=== PATIENT | male | born 1950 | race Caucasian/White ===

== ENCOUNTER 2016-11-11 08:00 | Outpatient (CLI) | payer MEDICARE, BC | END 2016-11-11 08:01 | disposition home or self-care (01) | DX: E11.9 Type 2 diabetes mellitus without complications (principal) ==

== ENCOUNTER 2017-08-21 13:07 | Emergency (ER) | payer MEDICARE, BC ==
[2017-08-21 14:30] LABS: BASOPHILS % (AUTO) 0.4 %; EOSINOPHILS % (AUTO) 0.3 %; HGB - HEMOGLOBIN 15.3 g/dL (14.0-18.0); LYMPHOCYTES # (AUTO) 2.3 10^3/uL (1.5-3.5); LYMPHOCYTES % (AUTO) 26.8 %; MEAN CORPUSCULAR VOLUME 87.7 fL (80.0-94.0); MEAN PLATELET VOLUME 11.3 fL (7.4-11.4); MONOCYTES # (AUTO) 0.8 10^3/uL (0.0-1.0); MONOCYTES % (AUTO) 8.9 %; NEUTROPHILS # (AUTO) 5.6 10^3/uL (1.5-6.6); NEUTROPHILS % (AUTO) 63.6 %; PLT - PLATELET COUNT 130 10^3/uL (130-450); RED BLOOD COUNT 5.28 10^6/uL (4.70-6.10); RED CELL DISTRIBUTION WIDTH 14.2 % (12.0-15.0); WHITE BLOOD COUNT 8.7 x10^3/uL (4.8-10.8)
[2017-08-21 14:36] LABS: BUN - BLOOD UREA NITROGEN 19 mg/dL (6-20); CALCIUM 10.2 mg/dL (8.5-10.3); CARBON DIOXIDE - CO2 27 mmol/L (21-32); CHLORIDE 99 mmol/L (101-111); CREATININE 1.3 mg/dL (0.6-1.2); GFR - MDRD 55 (>89); GLUCOSE 221 mg/dL (70-100); SODIUM 138 mmol/L (135-145)
[2017-08-21 14:43] LABS: PLATELET MORPHOLOGY RARE GIANT PLATELETS (NORMAL); RBC MORPHOLOGY (MULTIPLE) 2+ ANISOCYTOSIS (NORMAL)
[2017-08-21 15:40] LABS: MUDS CUTOFF CONCENTRATIONS CUTOFF CONC BELOW:
[2017-08-21 15:44] LABS: BILIRUBIN,URINE NEGATIVE (NEGATIVE); GLUCOSE, URINE (UA) 100 mg/dL (NEGATIVE); KETONES,URINE (UA) NEGATIVE (NEGATIVE); LEUKOCYTE ESTERASE, URINE NEGATIVE (NEGATIVE); NITRITE,URINE NEGATIVE (NEGATIVE); OCCULT BLOOD,URINE NEGATIVE (NEGATIVE); PROTEIN,URINE NEGATIVE (NEGATIVE); UROBILINOGEN,URINE 0.2 (NORMAL) E.U./dL (NORMAL)
[2017-08-21 15:49] LABS: CLARITY,URINE CLEAR (CLEAR)
--- NOTE | 2017-08-21 15:58 | CT Report ---
EXAM: CT HEAD EXAM DATE: 08/21/2017 03:44 PM. CLINICAL HISTORY: Confusion COMPARISON: None. TECHNIQUE: Multiaxial CT images were obtained from the foramen magnum to the vertex. Reformats: Coron al. IV contrast: None. In accordance with CT protocol optimization, one or more of the following dose reduction techniques w ere utilized for this exam: automated exposure control, adjustment of mA and/or KV based on patient s ize, or use of iterative reconstructive technique. FINDINGS: Parenchyma: There is cortical and subcortical hypodensity within the high right frontal region. There is subcortical hypodensity within the right posterior parietal region. There is a small focus of whi te matter hypodensity within the left centrum semiovale. There is no evidence of hemorrhage. No mass effect. No evidence of mass lesion. There is some scattered Extraaxial Spaces: Normal for age. No subdural or epidural collections identified. Ventricles: There is mild ex vacuo dilatation of the right lateral ventricle. Sinuses and Orbits: Imaged paranasal sinuses, orbits, and mastoids show no significant abnormality. Bones: No evidence of fracture or calvarial defect. Other: None. IMPRESSION: 1. Encephalomalacia within the high right frontal region is likely secondary to prior right MCA distr ibution infarct. 2. There is no evidence of hemorrhage or mass effect. [facility] Referring Provider Line: [phone] SITE ID: [id number]
[2017-08-21 15:59] LABS: AMPHETAMINE SCREEN,URINE NEGATIVE (NEGATIVE); BENZODIAZEPINES SCREEN, URINE NEGATIVE (NEGATIVE); COCAINE SCREEN URINE NEGATIVE (NEGATIVE); METHADONE SCREEN, URINE NEGATIVE (NEGATIVE); METHAMPHETAMINES SCREEN, URINE NEGATIVE (NEGATIVE); OPIATE SCREEN, URINE NEGATIVE (NEGATIVE); OXYCODONE SCREEN, URINE NEGATIVE (NEGATIVE); PROPOXYPHENE SCREEN, URINE NEGATIVE (NEGATIVE); TRICYCLIC ANTIDEPRESSANT,URINE NEGATIVE (NEGATIVE)
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
--- NOTE | 2017-08-21 18:24 | Ultrasound Preliminary Report ---
Exam: US CAROTID DOPPLER COMPLETE IMPRESSION: 1. The right internal carotid artery demonstrates no evidence of hemodynamically significant stenosis . 2. The left internal carotid artery is occluded. 3. Bilateral vertebral artery flow is antegrade. Validated velocity measurements with angiographic measurements and velocity criteria are extrapolated from diameter data as defined by the Society of Radiologists in Ultrasound Consensus Conference Radi ology 2003; 229;340-346. [facility] SITE ID: [id number]
--- NOTE | 2017-08-21 18:39 | Ultrasound Report ---
EXAM: CAROTID DOPPLER ULTRASOUND EXAM DATE: 08/21/2017 06:17 PM. CLINICAL HISTORY: Memory loss. COMPARISON: 07/04/2011. TECHNIQUE: Real-time sonographic vascular imaging was performed by the writing tutor through the caroti d arterial system with a linear transducer utilizing color-flow, Doppler flow and spectral analysis. Multiple wire rope sales representative static images were saved for review. FINDINGS: Right: RCCA Prox: PSV 86 cm/sec. RCCA Dist: PSV 64 cm/sec, EDV 14 cm/sec. RECA: PSV 205 cm/sec. R Bulb: PSV 69 cm/sec, EDV 12 cm/sec, ICA/CCA ratio 1.07. TAMIKO Prox: PSV 61 cm/sec, EDV 23 cm/sec, ICA/CCA ratio 0.95. TAMIKO Mid: PSV 72 cm/sec, EDV 25 cm/sec, ICA/CCA ratio 1.12. TAMIKO Dist: PSV 60 cm/sec, EDV 21 cm/sec, ICA/CCA ratio 0.93. RVA: PSV 67 cm/sec. RVA flow direction: Antegrade. Left: LCCA Prox: PSV 67 cm/sec. LCCA Dist: PSV 60 cm/sec, EDV 11 cm/sec. LECA: PSV 165 cm/sec. L Bulb: PSV 55 cm/sec, EDV 10 cm/sec, ICA/CCA ratio 0.91. LICA Prox: Occluded. LICA Mid: Occluded. LICA Dist: Occluded. LVA: PSV 26 cm/sec. LVA flow direction: Antegrade. Other: None. IMPRESSION: 1. The right internal carotid artery demonstrates no evidence of hemodynamically significant stenosis . 2. The left internal carotid artery is occluded. 3. Bilateral vertebral artery flow is antegrade. Validated velocity measurements with angiographic measurements and velocity criteria are extrapolated from diameter data as defined by the Society of Radiologists in Ultrasound Consensus Conference Radi ology 2003; 229;340-346. [facility] Referring Provider Line: [phone] SITE ID: [id number]
[2017-08-21 19:09] VITALS: BP 171/83
== END 2017-08-21 19:25 | disposition home or self-care (01) ==
LOC: ED 13:07
DX: R41.3 Other amnesia (principal); Z86.73 Personal history of transient ischemic attack (TIA), and cerebral infarction without residual deficits; I10 Essential (primary) hypertension; I25.10 Atherosclerotic heart disease of native coronary artery without angina pectoris; E11.9 Type 2 diabetes mellitus without complications; E78.00 Pure hypercholesterolemia, unspecified; Z79.82 Long term (current) use of aspirin; Z79.899 Other long term (current) drug therapy; Z79.84 Long term (current) use of oral hypoglycemic drugs
CPT/HCPCS: 36415; 70450; 80048; 80306; 81003; 84443; 85025; 93880; 99283; 99284; G0480; 80320; 81001; 87086

== ENCOUNTER 2018-04-08 15:15 | Outpatient (CLI) | payer MEDICARE, BC ==
[2018-04-08 19:04] LABS: BASOPHILS % (AUTO) 0.5 %; EOSINOPHILS # (AUTO) 0.1 10^3/uL (0.0-0.7); HGB - HEMOGLOBIN 14.7 g/dL (14.0-18.0); LYMPHOCYTES # (AUTO) 2.4 10^3/uL (1.5-3.5); LYMPHOCYTES % (AUTO) 38.4 %; MEAN CORPUSCULAR HEMOGLOBIN 29.5 pg (27.0-31.0); MEAN CORPUSCULAR HGB CONC 32.9 g/dL (32.0-36.0); MEAN CORPUSCULAR VOLUME 89.7 fL (80.0-94.0); MEAN PLATELET VOLUME 11.5 fL (7.4-11.4); MONOCYTES # (AUTO) 0.6 10^3/uL (0.0-1.0); NEUTROPHILS # (AUTO) 3.2 10^3/uL (1.5-6.6); NEUTROPHILS % (AUTO) 51.1 %; PLT - PLATELET COUNT 128 10^3/uL (130-450); RED CELL DISTRIBUTION WIDTH 14.1 % (12.0-15.0); WHITE BLOOD COUNT 6.3 x10^3/uL (4.8-10.8)
[2018-04-08 19:12] LABS: HB2 TOTAL 15.7 g/dL; HEMOGLOBIN A1C 0.69 g/dL; HEMOGLOBIN A1C % 6.2 % (4.6-6.2)
[2018-04-08 19:19] LABS: ALBUMIN 4.5 g/dL (3.2-5.5); ALBUMIN/GLOBULIN RATIO 1.6 (1.0-2.2); ALKALINE PHOSPHATASE 21 IU/L (42-121); ALT ALANINE AMINOTRANSFERASE 23 IU/L (10-60); AST ASPARTATE AMINOTRANSFERASE 22 IU/L (10-42); BILIRUBIN,TOTAL 0.4 mg/dL (0.2-1.0); BUN - BLOOD UREA NITROGEN 16 mg/dL (6-20); CALCIUM 9.4 mg/dL (8.5-10.3); CARBON DIOXIDE - CO2 29 mmol/L (21-32); CHLORIDE 105 mmol/L (101-111); CHOL/HDL RATIO 3.4 (<5.0); CHOLESTEROL 104 mg/dL; CREATININE 1.2 mg/dL (0.6-1.2); GFR - MDRD 60 (>89); GLUCOSE 116 mg/dL (70-100); HDL CHOLESTEROL 31 mg/dL; LDL CHOLESTEROL,CALCULATED 32 mg/dL; SODIUM 138 mmol/L (135-145); TOTAL PROTEIN 7.3 g/dL (6.7-8.2); VLDL CHOLESTEROL 41 mg/dL
[2018-04-08 19:23] LABS: THYROID STIMULATING HORMONE 1.17 uIU/mL (0.34-5.60)
== END 2018-04-08 15:16 | disposition home or self-care (01) ==
LOC: LAB.WCP 15:15
PROVIDERS: ATTEND Family Medicine
DX: R41.0 Disorientation, unspecified (principal); E11.9 Type 2 diabetes mellitus without complications; G31.84 Mild cognitive impairment of uncertain or unknown etiology
CPT/HCPCS: 36415; 80053; 80061; 82607; 83036; 83721; 84443; 85025

== ENCOUNTER 2018-04-21 09:42 | Outpatient (CLI) | payer MEDICARE, BC ==
[2018-04-21] MEDS ORDERED: GADOBUTROL 10 MMOL/10 ML VIAL ONE (11:08)
[2018-04-21] MEDS ORDERED: GADOBUTROL 10 MMOL/10 ML VIAL IVP ONE (11:17)
--- NOTE | 2018-04-21 13:57 | MRI Report ---
Reason: CONFUSION, MILD COFNITIVE IMPAIRMENT Procedure Date: 04/21/2018 Accession Number: [id number] / [id number] Procedure: MRI - Brain W/O CPT Code: FULL RESULT: EXAM: MRI BRAIN WITH AND WITHOUT CONTRAST EXAM DATE: 04/21/2018 11:16 AM. CLINICAL HISTORY: Mild cognitive impairment. Confusion. COMPARISON: CT head 08/21/2017. MRA neck 07/07/2011. TECHNIQUE: Multiplanar, multisequence T1-weighted and fluid-sensitive MR sequences of the brain were performed prior to and following the administration of intravenous contrast. Sequences optimized for routine evaluation. Other: None. IV Contrast: 10 cc Gadavist. FINDINGS: No abnormal diffusion signal is identified in the brain parenchyma. Encephalomalacia and gliosis is seen in the right frontal lobe from a remote partial distribution right MCA infarct. There is encephalomalacia and gliosis in the superior parietal lobe bilaterally. There is a small area of encephalomalacia and gliosis in the inferior, posterior right parietal lobe extending into the superior occipital lobe. Areas of cystic encephalomalacia are seen in the left centrum semiovale ovale. Gyriform magnetic susceptibility is seen in the right frontal lobe in the area of encephalomalacia. This could reflect the sequelae of a petechial hemorrhage at the time of infarct or could be a manifestation of laminar necrosis. Punctate white matter FLAIR hyperintensities in the cerebral hemisphere white matter bilaterally are nonspecific. No abnormal T2 or FLAIR hyperintense signal is present in the infratentorial brain. There is loss of the normal flow-void in the distal cervical ICA on the left. On the comparison MRA, the left ICA appears to be occluded. At the level of the A1/A2 junction of the left TONYA, there is a 2 mm fullness of the flow-void projecting medial to the left TONYA. There is no correlate on the postcontrast axial images suggesting that this reflects vessel tortuosity. No enhancing mass is identified in the brain parenchyma. Expected enhancement is seen in the major dural venous sinuses. The cavernous sinuses enhance in symmetric fashion. No mass is present in either orbit. Pansinus mucosal thickening is present. IMPRESSION: 1.No acute CVA. 2. No enhancing mass is present in the brain parenchyma. 3. Areas of encephalomalacia are seen in each cerebral hemisphere consistent with prior remote ischemic events. This includes a prior partial distribution right MCA infarct. 4. Again seen is an occluded left cervical ICA. 5. Pansinus mucosal thickening. [facility]
== END 2018-04-21 09:43 | disposition home or self-care (01) ==
LOC: DI 09:42
PROVIDERS: ATTEND Family Medicine
DX: G93.89 Other specified disorders of brain (principal); I65.22 Occlusion and stenosis of left carotid artery; Z86.73 Personal history of transient ischemic attack (TIA), and cerebral infarction without residual deficits
CPT/HCPCS: 70551; 70553; A9585

== ENCOUNTER 2018-10-21 16:37 | Outpatient (CLI) | payer MEDICARE, BC ==
--- NOTE | 2018-10-22 09:16 | MRI Report ---
Reason: NEW ONSET SEIZURE Procedure Date: 10/21/2018 Accession Number: [id number] / [id number] Procedure: MRI - Brain W/O CPT Code: FULL RESULT: EXAM: MRI BRAIN WITHOUT CONTRAST EXAM DATE: 10/21/2018 06:19 PM. CLINICAL HISTORY: NEW ONSET SEIZURE. COMPARISON: Prior MRI brain 04/21/2018, CT head 08/21/2017. TECHNIQUE: Multiplanar, multisequence T1-weighted and fluid-sensitive MR sequences of the brain were performed. Sequences optimized for routine evaluation. Other: None. IV Contrast: None. Findings: Relevant images are indicated (image number, series number). There is no interval acute/subacute ischemic change in the brain. Again seen is old right parietal stroke, with petechial hemorrhage, seen previously. No interval hemorrhage, mass or midline shift. Basal cisterns, bilateral IACs, bilateral Meckel's caves are clear. Again seen absence of a flow void of the left internal carotid artery. Otherwise, normal appearance of the flow voids of the major arteries/major draining veins. Orbital contents negative. Paranasal sinuses, mastoid air cells negative. Again seen are multifocal old strokes including large area right MCA, smaller left MCA areas but unchanged from MRI 04/21/2018. Superimposed mild scattered white matter disease, mild generalized brain atrophy. Impressions: Compared with MRI brain 04/21/2018: 1. No acute interval change. 2. Multifocal old strokes as detailed, stable. 3. Again seen occluded left internal carotid artery. [facility]
== END 2018-10-21 16:38 | disposition home or self-care (01) ==
LOC: DI 16:37
PROVIDERS: ATTEND Psychiatry & Neurology Neurology
DX: I65.22 Occlusion and stenosis of left carotid artery (principal); Z86.73 Personal history of transient ischemic attack (TIA), and cerebral infarction without residual deficits
CPT/HCPCS: 70551

== ENCOUNTER 2018-10-23 16:06 | Emergency (ER) | payer MEDICARE, BC ==
--- NOTE | 2018-10-23 17:15 | ED Physician Documentation ---
PD HPI HEENT - Stated complaint Stated Complaint: EARS PLUGGED - Chief complaint Chief Complaint: Heent - History obtained from History obtained from: Patient - History of Present Illness Timing - onset: How many days ago (few days of less hearing and he presumed some ear wax, so trying to flush it out. he now can't hear at all on left side.) Timing - details: Gradual onset (with worse today and now can't hear from it at all.) Location: Left ear Associated symptoms: No: Fever, Congestion Similar symptoms before: Diagnosis (earwax impaction) Recently seen: Not recently seen Review of Systems Constitutional: denies: Fever, Chills Ears: reports: Loss of hearing. denies: Drainage/discharge, Tinnitus/ringing Nose: denies: Rhinorrhea / runny nose, Congestion Throat: denies: Sore throat Respiratory: denies: Cough PD PAST MEDICAL HISTORY - Past Medical History Cardiovascular: Hypertension, High cholesterol, Coronary artery disease, [place], Other Respiratory: Other Endocrine/Autoimmune: Type 2 diabetes GI: GERD : Benign prostate hypertrophy, Kidney stones HEENT: Other Musculoskeletal: Osteoarthritis Derm: None - Past Surgical History Past Surgical History: Yes General: Cholecystectomy, Colonoscopy Ortho: Knee replacement, Arthroscopic surgery Cardiovascular: Coronary stent - Present Medications Home Medications: Ambulatory Orders Medication Instructions Recorded Confirmed Aspirin 81 mg PO BID 04/28/14 08/21/17 Atenolol 25 mg PO DAILY 04/28/14 08/21/17 Atorvastatin [Lipitor] 20 mg PO DAILY 04/28/14 08/21/17 Citalopram [CeleXA] 20 mg PO DAILY 04/28/14 08/21/17 Fenofibrate [Tricor] 144 mg PO DAILY 04/28/14 08/21/17 Losartan [Cozaar] 25 mg PO DAILY 04/28/14 08/21/17 Metformin HCl 500 mg PO BID 04/28/14 08/21/17 [place]-3 Fatty Acids [Fish Oil] 1,200 mg PO DAILY 04/28/14 08/21/17 Omeprazole [PriLOSEC] 20 mg PO DAILY 04/28/14 08/21/17 amLODIPine [Norvasc] 10 mg PO DAILY 02/26/15 08/21/17 Tamsulosin HCl [Flomax] 0.4 mg PO DAILY 08/21/17 08/21/17 Neomycin/Polymyx/Hc Otic Drops 4 drops LEFTEAR TID #1 bottle 10/23/18 [Cortisporin Ear Susp] - Allergies Allergies/Adverse Reactions: Allergies Allergy/AdvReac Type Severity Reaction Status Date / Time lorazepam AdvReac Severe Unable to Verified 10/23/18 16:13 move leg tamsulosin HCl * AdvReac Unknown Verified 10/23/18 16:13 [From Flomax] - Social History Does the pt smoke?: No Smoking Status: Never smoker Does the pt drink ETOH?: No Does the pt have substance abuse?: Yes - Immunizations Immunizations are current?: Yes PD ED PE NORMAL - Vitals Vital signs reviewed: Yes - General General: Alert and oriented X 3, No acute distress, Well developed/nourished - HEENT HEENT: PERRL, EOMI, Pharynx benign. No: Ears normal (right with mild wax and normal TM/canal. Left with impacted cerumen, which is removed with ear currette. The TM is red as is the medial canal, once visible with was out of the way. ) - Neck Neck: Supple, no meningeal sign, No adenopathy - Derm Derm: Normal color, Warm and dry - Neuro Neuro: Alert and oriented X 3, No motor deficit, Normal speech Results - Vitals Vitals: Oxygen O2 Source Room air Departure - Departure Disposition: 01 Home, Self Care Clinical Impression: Impacted cerumen of left ear Otitis externa Qualifiers: Otitis externa type: swimmer's ear Chronicity: acute Laterality: left Qualified Code(s): H60.332 - Swimmer's ear, left ear Condition: Stable Record reviewed to determine appropriate education?: Yes Instructions: ED Otitis Externa Follow-Up: Aramis Florian DO [Primary Care Provider] - Prescriptions: Neomycin/Polymyx/Hc Otic Drops [Cortisporin Ear Susp] 4 drops LEFTEAR TID #1 bottle Comments: Use the Cortisporin antibiotic eardrops 3 or 4 drops 3 times a day in the left ear. The ear wax is removed now but it did appear to create an infection in the canal subsequent to the irritation. This should improve with the drops over several days. Discharge Date/Time: 10/23/18 18:24
[2018-10-23] MEDS ORDERED: NEOMYCIN/POLYMYX/HC OTIC DROPS LEFTEAR STA (17:29)
[2018-10-23 17:56] VITALS: BP 148/79
== END 2018-10-23 18:24 | disposition home or self-care (01) ==
LOC: ED 16:06
DX: H61.22 Impacted cerumen, left ear (principal); H60.332 Swimmer's ear, left ear; I10 Essential (primary) hypertension; E78.00 Pure hypercholesterolemia, unspecified; I25.2 Old myocardial infarction; E11.9 Type 2 diabetes mellitus without complications; Z79.84 Long term (current) use of oral hypoglycemic drugs; Z79.82 Long term (current) use of aspirin
CPT/HCPCS: 69210; 99283; A9270

== ENCOUNTER 2019-02-08 12:31 | Outpatient (CLI) | payer MEDICARE, BC ==
[2019-02-08 19:24] LABS: BASOPHILS % (AUTO) 0.6 %; EOSINOPHILS # (AUTO) 0.2 10^3/uL (0.0-0.7); EOSINOPHILS % (AUTO) 2.4 %; HGB - HEMOGLOBIN 14.3 g/dL (14.0-18.0); LYMPHOCYTES # (AUTO) 2.7 10^3/uL (1.5-3.5); MEAN CORPUSCULAR HEMOGLOBIN 28.4 pg (27.0-31.0); MEAN CORPUSCULAR HGB CONC 30.4 g/dL (32.0-36.0); MEAN CORPUSCULAR VOLUME 93.3 fL (80.0-94.0); MEAN PLATELET VOLUME 14.1 fL (7.4-11.4); MONOCYTES # (AUTO) 0.6 10^3/uL (0.0-1.0); MONOCYTES % (AUTO) 9.4 %; NEUTROPHILS # (AUTO) 3.1 10^3/uL (1.5-6.6); NEUTROPHILS % (AUTO) 46.4 %; PLT - PLATELET COUNT 126 10^3/uL (130-450); RED BLOOD COUNT 5.04 10^6/uL (4.70-6.10); RED CELL DISTRIBUTION WIDTH 13.5 % (12.0-15.0); WHITE BLOOD COUNT 6.6 x10^3/uL (4.8-10.8)
[2019-02-08 19:29] LABS: HB2 TOTAL 14.7 g/dL; HEMOGLOBIN A1C 0.6 g/dL; HEMOGLOBIN A1C % 5.9 % (4.6-6.2)
[2019-02-08 19:43] LABS: ALBUMIN 4.3 g/dL (3.2-5.5); ALBUMIN/GLOBULIN RATIO 1.4 (1.0-2.2); ALKALINE PHOSPHATASE 20 IU/L (42-121); ALT ALANINE AMINOTRANSFERASE 23 IU/L (10-60); AST ASPARTATE AMINOTRANSFERASE 29 IU/L (10-42); BILIRUBIN,TOTAL 0.5 mg/dL (0.2-1.0); BUN - BLOOD UREA NITROGEN 22 mg/dL (6-20); CALCIUM 9.2 mg/dL (8.5-10.3); CARBON DIOXIDE - CO2 25 mmol/L (21-32); CHLORIDE 104 mmol/L (101-111); CHOL/HDL RATIO 3.5 (<5.0); CHOLESTEROL 111 mg/dL; CREATININE 1.3 mg/dL (0.6-1.2); GFR - MDRD 55 (>89); GLUCOSE 133 mg/dL (70-100); HDL CHOLESTEROL 32 mg/dL; LDL CHOLESTEROL,CALCULATED 57 mg/dL; LDL/HDL RATIO 1.8 (<3.6); SODIUM 136 mmol/L (135-145); TOTAL PROTEIN 7.3 g/dL (6.7-8.2); VLDL CHOLESTEROL 22 mg/dL
[2019-02-09 13:02] LABS: HEPATITIS C ANTIBODY NON-REACTIVE (NON-REACTIVE)
== END 2019-02-08 12:32 | disposition home or self-care (01) ==
LOC: LAB.WCP 12:31
PROVIDERS: ATTEND Family Medicine
DX: I10 Essential (primary) hypertension (principal); E11.9 Type 2 diabetes mellitus without complications; E78.5 Hyperlipidemia, unspecified; Z11.59 Encounter for screening for other viral diseases
CPT/HCPCS: 36415; 80053; 80061; 83036; 83721; 85025; 86803

== ENCOUNTER 2019-02-11 08:55 | Outpatient (CLI) | payer MEDICARE, BC ==
--- NOTE | 2019-02-11 13:23 | Ultrasound Report ---
Reason: ABDOMINAL AORTIC ANEURYSM Procedure Date: 02/11/2019 Accession Number: [id number] / [id number] Procedure: US - Retroperitoneal Limited CPT Code: FULL RESULT: EXAM: AORTIC DOPPLER ULTRASOUND EXAM DATE: 02/11/2019 09:56 AM. CLINICAL HISTORY: Abdominal aortic aneurysm. COMPARISON: None. TECHNIQUE: Real-time sonographic imaging of retroperitoneal vascular structures, including color-flow, Doppler flow and spectral analysis was performed by the energy project manager. Multiple sales training representative static images were saved for review. FINDINGS: Aorta: The abdominal aorta was adequately visualized. The aorta is diffusely atherosclerotic. No evidence for abdominal aortic aneurysm. Proximal aorta in the sagittal plane measures up to 1.8 cm. Mid aorta in the transverse plane measures 1.8 x 1.9 cm. Distal aorta in the transverse plane measures 1.9 x 2.0 cm. Right iliac artery in the transverse plane measures 1.0 x 1.2 cm and the left iliac artery in the transverse plane measures 1.2 x 1.0 cm. Iliac Vessels: The visualized proximal common iliac arteries are normal in caliber. Other: None. IMPRESSION: Atherosclerotic disease without an abdominal aortic aneurysm detected. [facility]
== END 2019-02-11 08:56 | disposition home or self-care (01) ==
LOC: DI 08:55
PROVIDERS: ATTEND Family Medicine
DX: I70.0 Atherosclerosis of aorta (principal)
CPT/HCPCS: 76775

== ENCOUNTER 2019-08-16 10:14 | Outpatient (CLI) | payer MEDICARE, BC ==
[2019-08-16 15:48] LABS: BASOPHILS % (AUTO) 0.5 %; EOSINOPHILS # (AUTO) 0.1 10^3/uL (0.0-0.7); EOSINOPHILS % (AUTO) 2.1 %; HGB - HEMOGLOBIN 14.5 g/dL (14.0-18.0); LYMPHOCYTES # (AUTO) 2.7 10^3/uL (1.5-3.5); MEAN CORPUSCULAR HEMOGLOBIN 29.8 pg (27.0-31.0); MEAN CORPUSCULAR HGB CONC 31.5 g/dL (32.0-36.0); MEAN CORPUSCULAR VOLUME 94.5 fL (80.0-94.0); MEAN PLATELET VOLUME 14.1 fL (7.4-11.4); MONOCYTES # (AUTO) 0.6 10^3/uL (0.0-1.0); MONOCYTES % (AUTO) 9.2 %; NEUTROPHILS # (AUTO) 2.7 10^3/uL (1.5-6.6); NEUTROPHILS % (AUTO) 43.9 %; PLT - PLATELET COUNT 122 10^3/uL (130-450); RED BLOOD COUNT 4.87 10^6/uL (4.70-6.10); RED CELL DISTRIBUTION WIDTH 13.6 % (12.0-15.0); WHITE BLOOD COUNT 6.2 x10^3/uL (4.8-10.8)
[2019-08-16 16:15] LABS: HB2 TOTAL 14.9 g/dL; HEMOGLOBIN A1C 0.63 g/dL
[2019-08-16 16:27] LABS: ALBUMIN 4.4 g/dL (3.2-5.5); ALBUMIN/GLOBULIN RATIO 1.6 (1.0-2.2); ALKALINE PHOSPHATASE 19 IU/L (42-121); ALT ALANINE AMINOTRANSFERASE 19 IU/L (10-60); AST ASPARTATE AMINOTRANSFERASE 23 IU/L (10-42); BILIRUBIN,TOTAL 0.7 mg/dL (0.2-1.0); BUN - BLOOD UREA NITROGEN 22 mg/dL (6-20); CALCIUM 9.4 mg/dL (8.5-10.3); CARBON DIOXIDE - CO2 31 mmol/L (21-32); CHLORIDE 101 mmol/L (101-111); CHOL/HDL RATIO 4.1 (<5.0); CHOLESTEROL 128 mg/dL; CREATININE 1.5 mg/dL (0.6-1.2); GFR - MDRD 46 (>89); GLUCOSE 108 mg/dL (70-100); HDL CHOLESTEROL 31 mg/dL; LDL CHOLESTEROL,CALCULATED 65 mg/dL; LDL/HDL RATIO 2.1 (<3.6); SODIUM 139 mmol/L (135-145); TOTAL PROTEIN 7.1 g/dL (6.7-8.2); VLDL CHOLESTEROL 32 mg/dL
== END 2019-08-16 23:59 | disposition home or self-care (01) ==
LOC: LAB.WCP 10:14
PROVIDERS: ATTEND Family Medicine
DX: E11.9 Type 2 diabetes mellitus without complications (principal)
CPT/HCPCS: 36415; 80053; 80061; 83036; 83721; 85025

== ENCOUNTER 2019-08-26 10:06 | Outpatient (CLI) | payer MEDICARE, BC ==
--- NOTE | 2019-08-26 15:44 | XRAY Report ---
Reason: LEFT FOOT PAIN Procedure Date: 08/26/2019 Accession Number: [id number] / [id number] Procedure: WCP - Foot 3 View LT CPT Code: Final Report FULL RESULT: EXAM: LEFT FOOT RADIOGRAPHY EXAM DATE: 08/26/2019 10:06 AM. CLINICAL HISTORY: Left foot pain. COMPARISON: None. TECHNIQUE: 3 views. FINDINGS: Bones: Normal. No fractures or bone lesions. Joints: Normal. No subluxations. Soft Tissues: Extensive vascular calcifications are noted. No soft tissue gas. IMPRESSION: No acute osseous derangement. Extensive medial vascular calcifications, correlate to peripheral neuropathy. [facility]
== END 2019-08-26 23:59 | disposition home or self-care (01) ==
LOC: DI.WCP 10:06
PROVIDERS: ATTEND Family Medicine
DX: M79.672 Pain in left foot (principal); I70.90 Unspecified atherosclerosis

== ENCOUNTER 2019-09-07 08:39 | Day surgery (SDC) | payer MEDICARE, BC ==
[2019-09-07] MEDS ORDERED: LACTATED RINGERS 1,000 ML IV ONE (08:44)
[2019-09-07] MEDS ORDERED: MIDAZOLAM 2 MG/2 ML VIAL IVP ONE (09:56)
[2019-09-07] MEDS ORDERED: fentaNYL 250 MCG/5 ML VIAL IVP ONE (09:56)
[2019-09-07 11:01] VITALS: BP 159/85
== END 2019-09-07 08:40 | disposition home or self-care (01) ==
LOC: SDS 08:39
PROVIDERS: ATTEND Surgery
PROC: 0DJD8ZZ Inspection of Lower Intestinal Tract, Via Natural or Artificial Opening Endoscopic (ICD-10-PCS; principal; 2019-09-07 10:15)
DX: Z12.11 Encounter for screening for malignant neoplasm of colon (principal); E11.9 Type 2 diabetes mellitus without complications; I10 Essential (primary) hypertension; I25.2 Old myocardial infarction; I25.10 Atherosclerotic heart disease of native coronary artery without angina pectoris; Z87.891 Personal history of nicotine dependence
CPT/HCPCS: G0121; J7120

== ENCOUNTER 2020-11-26 10:27 | Outpatient (CLI) | payer MEDICARE, BC ==
[2020-11-26 18:24] LABS: BASOPHILS % (AUTO) 0.3 %; EOSINOPHILS % (AUTO) 1.2 %; HCT - HEMATOCRIT 44.9 % (42.0-52.0); HGB - HEMOGLOBIN 14.4 g/dL (14.0-18.0); LYMPHOCYTES % (AUTO) 41.2 %; MEAN CORPUSCULAR HEMOGLOBIN 29.6 pg (27.0-31.0); MEAN CORPUSCULAR HGB CONC 32.1 g/dL (32.0-36.0); MEAN CORPUSCULAR VOLUME 92.2 fL (80.0-94.0); MEAN PLATELET VOLUME 14.2 fL (7.4-11.4); MONOCYTES % (AUTO) 8.4 %; NEUTROPHILS % (AUTO) 48.8 %; PLT - PLATELET COUNT 116 10^3/uL (130-450); RED BLOOD COUNT 4.87 10^6/uL (4.70-6.10); RED CELL DISTRIBUTION WIDTH 13.6 % (12.0-15.0); WHITE BLOOD COUNT 6.7 x10^3/uL (4.8-10.8)
[2020-11-26 18:27] LABS: ABNORMAL LYMPHS % (MANUAL) 0 %; BAND NEUTROPHILS % (MANUAL) 0 %
[2020-11-26 19:13] LABS: ALBUMIN 4.3 g/dL (3.2-5.5); ALBUMIN/GLOBULIN RATIO 1.4 (1.0-2.2); ALKALINE PHOSPHATASE 18 IU/L (42-121); ALT ALANINE AMINOTRANSFERASE 24 IU/L (10-60); AST ASPARTATE AMINOTRANSFERASE 23 IU/L (10-42); BILIRUBIN,TOTAL 0.8 mg/dL (0.2-1.0); BUN - BLOOD UREA NITROGEN 26 mg/dL (6-20); CALCIUM 8.8 mg/dL (8.5-10.3); CARBON DIOXIDE - CO2 25 mmol/L (21-32); CHLORIDE 101 mmol/L (101-111); CHOL/HDL RATIO 4.4 (<5.0); CHOLESTEROL 145 mg/dL; CREATININE 1.6 mg/dL (0.6-1.2); GFR - MDRD 43 (>89); GLUCOSE 107 mg/dL (70-100); HDL CHOLESTEROL 33 mg/dL; LDL CHOLESTEROL,CALCULATED 81 mg/dL; LDL/HDL RATIO 2.5 (<3.6); POTASSIUM 4.3 mmol/L (3.5-5.0); SODIUM 136 mmol/L (135-145); TOTAL PROTEIN 7.4 g/dL (6.7-8.2); TRIGLYCERIDES 156 mg/dL; VLDL CHOLESTEROL 31 mg/dL
[2020-11-26 19:25] LABS: CREATININE,URINE 251.6 mg/dL; MICROALBUM/CREATININE RATIO,UR 17.9 ug/mg (<30.0); MICROALBUMIN,URINE 4.5 mg/dL (0-300.0)
[2020-11-26 20:04] LABS: ESTIMATED AVERAGE GLUCOSE 128 mg/dL (70-100); HEMOGLOBIN A1c% 6.1 % (4.27-6.07)
[2020-11-26 20:23] LABS: EOSINOPHILS # (MANUAL) 0.7 10^3/uL (0-0.7); LYMPHOCYTES # (MANUAL) 2.6 10^3/uL (1.5-3.5); LYMPHOCYTES % (MANUAL) 27 %; MONOCYTES # (MANUAL) 0.5 10^3/uL (0.0-1.0); NEUTROPHILS # (MANUAL) 2.9 10^3/uL (1.5-6.6); REACTIVE LYMPHS % (MANUAL) 12 %
[2020-11-26 20:24] LABS: DIFFERENTIAL COMMENT MANUAL DIFFERENTIAL; PLATELET ESTIMATE, MANUAL DECREASED (<130,000) (NORMAL); PLATELET MORPHOLOGY 1+ GIANT PLATELETS (NORMAL); RBC MORPHOLOGY (MULTIPLE) NORMAL APPEARANCE (NORMAL); WBC MORPHOLOGY (MULTIPLE) NORMAL APPEARANCE (NORMAL)
== END 2020-11-26 23:59 | disposition home or self-care (01) ==
LOC: LAB.WCP 10:27
PROVIDERS: ATTEND Family Medicine
DX: E11.9 Type 2 diabetes mellitus without complications (principal)
CPT/HCPCS: 36415; 80053; 80061; 82043; 82570; 83036; 83721; 85025

== ENCOUNTER 2020-12-09 11:03 | Outpatient (CLI) | payer MEDICARE, BC ==
--- NOTE | 2020-12-09 12:20 | Ultrasound Report ---
PROCEDURE: Testicle INDICATIONS: TESTICULAR PAIN, L TECHNIQUE: Real-time scanning was performed of the scrotum and testicles, with image documentation. Color and p ulse Doppler interrogation was performed of both testicles. COMPARISON: None. FINDINGS: Right: Testicle is normal in size at 3.9 x 2.2 x 2.8 cm, and homogenous in echotexture. Epididymis is normal in overall size and morphology. Moderate to enlarged hydrocele. No evidence of varicocele. Overlying scrotal skin is normal in thickness. Left: Testicle is normal in size at 4.6 x 2.5 x 2.9 cm, and homogeneous in echotexture. Epididymis is normal in overall size. Unremarkable appearance of the epididymal appendices there is an anechoic cystic lesion within the epididymal head measuring 7 x 4 x 8 mm consistent with an epididymal head cy st versus hematocele. Moderate to large hydrocele. No varicocele. Overlying scrotal skin is normal in thickness. Doppler: Color and pulse Doppler demonstrate normal and symmetric arterial flow in both testicles. IMPRESSION: Moderate to large hydroceles bilaterally. Left epididymal head cyst measuring 8 mm. Reviewed by: Kofi Horton DO on 12/09/2020 11:19 AM CH[facility]O Approved by: Kofi Horton DO on 12/09/2020 11:19 AM CHATO Station ID: [id number]
--- NOTE | 2020-12-10 10:24 | Ultrasound Report ---
PROCEDURE: Retroperitoneal INDICATIONS: Acute renal insufficiency TECHNIQUE: Real-time scanning was performed of the retroperitoneal organs, with image documentation. COMPARISON: None. FINDINGS: Kidneys: Kidneys are normal in size. Right kidney measures 11.3 cm long; left kidney measures 13.7 cm long. Right renal cortical thickness is 1.4 cm; left renal cortical thickness is 1.6 cm. No angus d masses or hydronephrosis. Focal region of echogenicity within the medial anterior aspect of the rig ht kidney interpolar region measures 6 x 9 x 8 mm. No definite twinkle artifact. Bladder: Prevoid bladder volume measures 76 cc. Post void bladder volume measures 18 cc. Questionable circumferential wall thickening of the bladder which is 11 cm attenuation given incomplete distentio n No focal thickening. Bilateral ureteral jets are identified. Prostate is noted measuring 4.1 x 2.8 x 4.9 cm corresponding to a volume of approximately 30 cc. Miscellaneous: No free abdominal fluid. IMPRESSION: No suspicious abnormality of the kidneys. 6 mm x 8 mm hyper echogenicity within the right kidney may represent focal fat versus nonobstructing nephrolith. Questionable wall thickening of the bladder limited in evaluation given incomplete distention. Prostate along the upper limits of normal in size. Reviewed by: Kofi Horton DO on 12/09/2020 3:23 PM CHATO Approved by: Kofi Horton DO on 12/09/2020 3:23 PM CHATO Station ID: [id number]
== END 2020-12-09 11:04 | disposition home or self-care (01) ==
LOC: DI 11:03
PROVIDERS: ATTEND Family Medicine
DX: R93.421 Abnormal radiologic findings on diagnostic imaging of right kidney (principal); N43.3 Hydrocele, unspecified; N50.3 Cyst of epididymis

== ENCOUNTER 2020-12-25 09:06 | Outpatient (CLI) | payer MEDICARE, BC ==
--- NOTE | 2020-12-25 12:16 | XRAY Report ---
PROCEDURE: Lumbar Spine 2 View INDICATIONS: DEGENERATIVE JOINT DISEASE TECHNIQUE: 3 views of the lumbar spine were acquired. COMPARISON: Lumbar spine x-ray 03/03/2013 FINDINGS: Bones: 5 [id number] vertebrae are present. There is trace retrolisthesis of L3 on L4, L5 on S1 . Moderate to severe multilevel disc space narrowing is present most significant at L4-5 and L5-S1. S evere foraminal narrowing is noted at L5-S1, moderate to severe at L4-5. Multilevel anterior osteophy juan carlos are noted bridging at L5-S1. No vertebral body compression fractures. No suspicious bony lesions . Overall, there has been a minimal to mild appearance of progression compared to prior exam. Soft tissues: Overlying bowel gas pattern is normal. No suspicious soft tissue calcifications. IMPRESSION: Multilevel degenerative changes most severe at L4-5 and L5-S1. Reviewed by: Lolita Cesar MD on 12/25/2020 12:14 PM PDT Approved by: Lolita Cesar MD on 12/25/2020 12:14 PM PDT Station ID: [id number]
== END 2020-12-25 09:07 | disposition home or self-care (01) ==
LOC: DI.N 09:06
PROVIDERS: ATTEND Family Medicine
DX: M47.816 Spondylosis without myelopathy or radiculopathy, lumbar region (principal); M47.817 Spondylosis without myelopathy or radiculopathy, lumbosacral region

== ENCOUNTER 2021-03-28 08:48 | Outpatient (CLI) | payer MEDICARE, BC ==
--- NOTE | 2021-03-28 15:14 | MRI Report ---
PROCEDURE: Lumbar Spine W/O INDICATIONS: CHRONIC LOW BACK PAIN TECHNIQUE: Noncontrast sagittal T1 spin echo and T2 fast echo, sagittal STIR, axial T1 and T2 fast spin echo thr ough the lumbar spine. In cases with scoliosis, additional coronal T2 fast spin echo may be performe d. COMPARISON: Relation is made with prior lumbar plain films, 12/25/2020 FINDINGS: Image quality: Motion artifact is noted. Alignment and Curvature: There is minimal retrolisthesis seen at the L5-S1 level. Bone Marrow: Marrow is of normal overall signal. Mild anterior wedge deformities can be seen involvi ng T11 and T12, 10-20% loss of height anteriorly. No acute features are seen. No acute vertebral body compression fractures. An apparent limbus vertebral body can be seen at T12. Spinal Cord: Conus medullaris terminates at the L1 level. Visualized cord demonstrates normal signa l and size. Paraspinous Soft Tissues: No paravertebral masses. T12-L1: Moderate loss of disc height and signal are seen. Moderate disc bulge is seen, which is ecce ntric to the right. Mild facet hypertrophy is seen. Moderate bilateral neuroforaminal narrowing can be seen, left worse than right. Mild central canal narrowing is seen. L1-L2: The disc height is well-preserved. There is loss of disc signal seen. Moderate disc bulg e is seen at this level. At least moderate facet hypertrophy is seen, with associated hypertrophy o f the ligamentum flavum flavum. There is moderate to severe left-sided and moderate right-sided neuro foraminal narrowing seen. Moderate central canal narrowing is seen. L2-L3: Moderate loss of disc height and signal are seen. Moderate disc bulge is seen, which is e ccentric to the right. There is a central disc protrusion. Moderate facet hypertrophy is seen. Asso ciated hypertrophy of the ligamentum flavum can be seen. Moderate bilateral neural foraminal narrow ing is seen. Moderate to severe central canal narrowing is seen, as on series 601 image 27. L3-L4: Mild to moderate loss of disc height and disc signal can be seen. At least moderate disc bul ge is seen, with a central disc protrusion. Mild to moderate facet hypertrophy is seen. Associated hy pertrophy of the ligamentum flavum can be seen. At least moderate bilateral neuroforaminal narrowing can be seen. Moderate to severe central canal narrowing is seen, as on series 601 image 20. L4-L5: Moderate loss of disc height and signal are seen. Moderate to prominent disc bulge is seen, with a central disc extrusion, with inferior migration of the disc material. At least moderate facet hypertrophy is seen. Associated hypertrophy of the ligamentum flavum can be seen. There is moderate to severe bilateral neuroforaminal narrowing seen, right worse than left. Compression is seen upon th e exiting nerve roots. There is severe central canal narrowing, as on series 601 image 13. L5-S1: Moderate loss of disc height and signal are seen. Moderate disc bulge is seen, which is ecce ntric to the right. Mild to moderate facet hypertrophy is seen. There is moderate to severe bilateral neuroforaminal narrowing seen, right worse than left. Compression is seen upon the exiting nerve meir ts. Moderate central canal narrowing is seen. IMPRESSION: Multiple levels of relatively prominent lumbar spine degenerative change can be seen, wh ich are worst at the L4-L5 level. Reviewed by: Cezar Martinez MD on 03/28/2021 2:13 PM CHATO Approved by: Cezar Martinez MD on 03/28/2021 2:13 PM CHATO Station ID: [id number]
== END 2021-03-28 08:49 | disposition home or self-care (01) ==
LOC: DI 08:48
PROVIDERS: ATTEND Family Medicine
DX: M43.17 Spondylolisthesis, lumbosacral region (principal); M47.815 Spondylosis without myelopathy or radiculopathy, thoracolumbar region; M48.05 Spinal stenosis, thoracolumbar region; M47.816 Spondylosis without myelopathy or radiculopathy, lumbar region; M48.061 Spinal stenosis, lumbar region without neurogenic claudication; M51.26 Other intervertebral disc displacement, lumbar region; M47.817 Spondylosis without myelopathy or radiculopathy, lumbosacral region; M48.07 Spinal stenosis, lumbosacral region

== ENCOUNTER 2021-05-27 09:11 | Outpatient (CLI) | payer MEDICARE, BC ==
[2021-05-27 12:23] LABS: BASOPHILS % (AUTO) 0.4 %; EOSINOPHILS # (AUTO) 0.2 10^3/uL (0.0-0.7); EOSINOPHILS % (AUTO) 2.1 %; HCT - HEMATOCRIT 44.3 % (42.0-52.0); HGB - HEMOGLOBIN 14.1 g/dL (14.0-18.0); LYMPHOCYTES # (AUTO) 2.8 10^3/uL (1.5-3.5); LYMPHOCYTES % (AUTO) 39.1 %; MEAN CORPUSCULAR HEMOGLOBIN 29.3 pg (27.0-31.0); MEAN CORPUSCULAR HGB CONC 31.8 g/dL (32.0-36.0); MEAN CORPUSCULAR VOLUME 92.1 fL (80.0-94.0); MEAN PLATELET VOLUME 14.2 fL (7.4-11.4); MONOCYTES # (AUTO) 0.8 10^3/uL (0.0-1.0); MONOCYTES % (AUTO) 10.5 %; NEUTROPHILS # (AUTO) 3.4 10^3/uL (1.5-6.6); NEUTROPHILS % (AUTO) 47.3 %; PLT - PLATELET COUNT 115 10^3/uL (130-450); RED BLOOD COUNT 4.81 10^6/uL (4.70-6.10); RED CELL DISTRIBUTION WIDTH 13.6 % (12.0-15.0); WHITE BLOOD COUNT 7.2 x10^3/uL (4.8-10.8)
[2021-05-27 13:20] LABS: ESTIMATED AVERAGE GLUCOSE 126 mg/dL (70-100)
[2021-05-27 13:36] LABS: ALBUMIN 4.5 g/dL (3.2-5.5); ALBUMIN/GLOBULIN RATIO 1.7 (1.0-2.2); BILIRUBIN,TOTAL 0.7 mg/dL (0.2-1.0); CREATININE 1.7 mg/dL (0.6-1.2); POTASSIUM 4.5 mmol/L (3.5-5.0); TOTAL PROTEIN 7.2 g/dL (6.7-8.2)
== END 2021-05-27 23:59 | disposition home or self-care (01) ==
LOC: LAB.WCP 09:11
PROVIDERS: ATTEND Family Medicine
DX: E11.9 Type 2 diabetes mellitus without complications (principal)
CPT/HCPCS: 36415; 80053; 83036; 85025

== ENCOUNTER 2021-06-04 09:17 | Outpatient (CLI) | payer MEDICARE, BC ==
--- NOTE | 2021-06-04 14:49 | XRAY Report ---
PROCEDURE: Shoulder 3 View LT INDICATIONS: BURSITIS OF LEFT SHOULDER TECHNIQUE: 4 views of the shoulder were acquired. COMPARISON: March 15, 2019. FINDINGS: BONES: No acute, displaced fracture or dislocation. The glenohumeral and acromioclavicular joint spac es are maintained. SOFT TISSUES: Increased calcific density along the superior aspect of the AC joint and outlining the humeral head, most consistent with crystal deposition. No appreciable pneumothorax. IMPRESSION: 1.No acute osseous abnormality. Reviewed by: Eligio Richardson MD on 06/04/2021 2:48 PM PDT Approved by: Eligio Richardson MD on 06/04/2021 2:48 PM PDT Station ID: [id number]
== END 2021-06-04 09:18 ==
LOC: DI.N 09:17
PROVIDERS: ATTEND Physician Assistant
DX: M75.52 Bursitis of left shoulder (principal)

== ENCOUNTER 2021-07-04 08:00 | Outpatient (CLI) | payer MEDICARE, BC ==
[2021-07-04 18:10] LABS: CALCIUM 9.3 mg/dL (8.5-10.3); POTASSIUM 4.3 mmol/L (3.5-5.0)
[2021-07-04 18:16] LABS: BILIRUBIN,URINE NEGATIVE (NEGATIVE); GLUCOSE, URINE (UA) NEGATIVE (NEGATIVE); KETONES,URINE (UA) NEGATIVE (NEGATIVE); LEUKOCYTE ESTERASE, URINE NEGATIVE (NEGATIVE); NITRITE,URINE NEGATIVE (NEGATIVE); OCCULT BLOOD,URINE NEGATIVE (NEGATIVE); PROTEIN,URINE NEGATIVE (NEGATIVE); UROBILINOGEN,URINE 0.2 (NORMAL) E.U./dL (NORMAL)
[2021-07-04 18:31] LABS: BACTERIA,URINE None Seen /HPF (None Seen); CLARITY,URINE CLEAR (CLEAR); RBC,URINE None Seen /HPF (0-5); SQUAMOUS EPITHELIAL CELL,UR RARE Squamous (<= Few); WBC,URINE 0-3 /HPF (0-3)
== END 2021-07-04 23:59 | disposition home or self-care (01) ==
LOC: LAB.WCP 08:00
PROVIDERS: ATTEND Family Medicine
DX: N18.31 Chronic kidney disease, stage 3a (principal)
CPT/HCPCS: 36415; 80048; 81001; 87086

== ENCOUNTER 2021-07-09 10:54 | Outpatient (CLI) | payer MEDICARE, BC ==
[2021-07-09 18:11] LABS: CREATININE,URINE 164.8 mg/dL; PROTEIN/CREATININE RATIO,URINE 0.1 (<=0.2)
[2021-07-09 18:53] LABS: ALBUMIN 4.5 g/dL (3.2-5.5); ALBUMIN/GLOBULIN RATIO 1.6 (1.0-2.2); BILIRUBIN,TOTAL 0.6 mg/dL (0.2-1.0); CALCIUM 9.7 mg/dL (8.5-10.3); CREATININE 1.8 mg/dL (0.6-1.2); POTASSIUM 4.2 mmol/L (3.5-5.0); TOTAL PROTEIN 7.4 g/dL (6.7-8.2)
[2021-07-11 14:36] LABS: ALBUMIN 4.4 g/dL (3.8-4.8); ALPHA 1 GLOBULIN 0.3 g/dL (0.2-0.3); ALPHA 2 GLOBULIN 0.7 g/dL (0.5-0.9); BETA 1 GLOBULIN 0.6 g/dL (0.4-0.6); BETA 2 GLOBULIN 0.3 g/dL (0.2-0.5)
== END 2021-07-09 23:59 | disposition home or self-care (01) ==
LOC: LAB.WCP 10:54
PROVIDERS: ATTEND Family Medicine
DX: N18.31 Chronic kidney disease, stage 3a (principal); N28.9 Disorder of kidney and ureter, unspecified; M54.50 Low back pain, unspecified; G89.29 Other chronic pain
CPT/HCPCS: 36415; 80053; 81599; 82570; 84155; 84156; 84165; 86335

== ENCOUNTER 2021-11-11 14:58 | Outpatient (CLI) | payer MEDICARE, BC ==
[2021-11-11 17:40] LABS: BASOPHILS % (AUTO) 0.3 %; EOSINOPHILS % (AUTO) 1.4 %; HCT - HEMATOCRIT 39.4 % (42.0-52.0); HGB - HEMOGLOBIN 13.7 g/dL (14.0-18.0); LYMPHOCYTES % (AUTO) 36.4 %; MEAN CORPUSCULAR HEMOGLOBIN 31.9 pg (27.0-31.0); MEAN CORPUSCULAR HGB CONC 34.8 g/dL (32.0-36.0); MEAN CORPUSCULAR VOLUME 91.6 fL (80.0-94.0); MEAN PLATELET VOLUME 13.6 fL (7.4-11.4); MONOCYTES % (AUTO) 8.8 %; NEUTROPHILS % (AUTO) 52.8 %; PLT - PLATELET COUNT 133 10^3/uL (130-450); RED CELL DISTRIBUTION WIDTH 14.4 % (12.0-15.0); WHITE BLOOD COUNT 7.6 x10^3/uL (4.8-10.8)
[2021-11-11 17:42] LABS: ABNORMAL LYMPHS % (MANUAL) 0 %; BAND NEUTROPHILS % (MANUAL) 0 %
[2021-11-11 17:58] LABS: ALBUMIN 4.2 g/dL (3.2-5.5); ALBUMIN/GLOBULIN RATIO 1.5 (1.0-2.2); BILIRUBIN,TOTAL 0.4 mg/dL (0.2-1.0); CALCIUM 9.3 mg/dL (8.5-10.3); CREATININE 1.7 mg/dL (0.6-1.2); POTASSIUM 4.2 mmol/L (3.5-5.0)
[2021-11-11 18:04] LABS: EOSINOPHILS # (MANUAL) 0.1 10^3/uL (0-0.7); LYMPHOCYTES # (MANUAL) 2.6 10^3/uL (1.5-3.5); LYMPHOCYTES % (MANUAL) 34 %; MONOCYTES # (MANUAL) 0.6 10^3/uL (0.0-1.0); NEUTROPHILS # (MANUAL) 4.3 10^3/uL (1.5-6.6)
[2021-11-11 18:05] LABS: DIFFERENTIAL COMMENT MANUAL DIFFERENTIAL; PLATELET ESTIMATE, MANUAL NORMAL (130-450,000) (NORMAL); PLATELET MORPHOLOGY NORMAL APPEARANCE (NORMAL); RBC MORPHOLOGY (MULTIPLE) NORMAL APPEARANCE (NORMAL); WBC MORPHOLOGY (MULTIPLE) NORMAL APPEARANCE (NORMAL)
[2021-11-11 18:14] LABS: THYROID STIMULATING HORMONE 2.25 uIU/mL (0.34-5.60)
[2021-11-11 21:00] LABS: ESTIMATED AVERAGE GLUCOSE 151 mg/dL (70-100); HEMOGLOBIN A1c% 6.9 % (4.27-6.07)
[2021-11-13 12:46] LABS: % IRON SATURATION 18 % (20-50); IRON 70 ug/dL (45-182); TOTAL IRON BINDING CAPACITY 398 ug/dL (250-450); TRANSFERRIN 284 mg/dL (180-329)
== END 2021-11-11 14:59 | disposition home or self-care (01) ==
LOC: LAB.N 14:58
PROVIDERS: ATTEND Nurse Practitioner Family
DX: I12.9 Hypertensive chronic kidney disease with stage 1 through stage 4 chronic kidney disease, or unspecified chronic kidney disease (principal); E11.22 Type 2 diabetes mellitus with diabetic chronic kidney disease; N18.31 Chronic kidney disease, stage 3a; Z79.899 Other long term (current) drug therapy; E56.8 Deficiency of other vitamins; R35.1 Nocturia; N40.1 Benign prostatic hyperplasia with lower urinary tract symptoms; N13.8 Other obstructive and reflux uropathy
CPT/HCPCS: 36415; 80053; 82306; 82607; 82728; 83036; 83540; 84153; 84443; 84466; 85025

== ENCOUNTER 2022-04-23 12:48 | Outpatient (CLI) | payer MEDICARE, BC ==
--- NOTE | 2022-04-23 17:16 | XRAY Report ---
PROCEDURE: Chest 2 View X-Ray INDICATIONS: CHEST WALL MASS TECHNIQUE: 2 view(s) of the chest. COMPARISON: 04/28/2014 FINDINGS: Surgical changes and devices: None. Lungs and pleura: No pleural effusions or pneumothorax. Lungs are clear. Mediastinum: Mediastinal contours are normal. Heart size is normal. Bones and chest wall: There is partially visualized irregular osseous densities of the lower sternum which is nonspecific, however if this correlates with the area of concern for chest wall mass, recom mend CT of the chest. No other mass is identified. IMPRESSION: Irregular appearance surrounding the lower sternum, please correlate with the area of cl inical concern for a chest wall mass. Recommend CT for further evaluation. Reviewed by: Dave Salgado on 04/23/2022 5:15 PM PDT Approved by: Dave Salgado on 04/23/2022 5:15 PM PDT Station ID: [id number]
== END 2022-04-23 12:49 | disposition home or self-care (01) ==
LOC: DI.N 12:48
PROVIDERS: ATTEND Nurse Practitioner
DX: R91.8 Other nonspecific abnormal finding of lung field (principal)

== ENCOUNTER 2022-04-30 08:00 | Outpatient (CLI) | payer MEDICARE, BC ==
[2022-04-30 12:26] LABS: CREATININE 2.1 mg/dL (0.6-1.2)
== END 2022-04-30 23:59 | disposition home or self-care (01) ==
LOC: LAB 08:00
PROVIDERS: ATTEND Nurse Practitioner
DX: R22.2 Localized swelling, mass and lump, trunk (principal)
CPT/HCPCS: 36415; 82565

== ENCOUNTER 2022-04-30 11:49 | Outpatient (CLI) | payer MEDICARE, BC ==
--- NOTE | 2022-04-30 15:30 | CT Report ---
PROCEDURE: CHEST WO INDICATIONS: Chest Wall Mass TECHNIQUE: Noncontrast 1mm axial images were acquired from the pulmonary apices to the posterior costophrenic an gles. Axial 5 mm soft tissue kernel reconstructions were performed as well as 8 mm axial MIP and cor onal and sagittal 5 mm reformations. For radiation dose reduction, the following was used: automate d exposure control, adjustment of mA and/or kV according to patient size. COMPARISON: None FINDINGS: Image quality: Excellent. Lungs and pleura: 3 mm nodule in the right lower lobe series 6 image 117. No acute air space opacitie s. No pleural effusions or pneumothorax. Central and peripheral airways are patent and normal in ca liber. Mediastinum: Heart size is normal. No pericardial effusion. No mediastinal adenopathy by size crit eria. Thoracic aorta and central pulmonary arteries are normal in size. Esophagus is normal in [place]. No hiatal hernia. Bones and chest wall: No suspicious bony lesions. No vertebral body compression fractures. No axil belén or supraclavicular adenopathy by size criteria. The thyroid is normal in size. There are calcif ications of the costochondral joints of the lower sternum on the right optic for the radiographic abn ormality are benign with no mass. Abdomen: Visualized upper abdominal solid organs and bowel loops appear normal in the absence of con trast. IMPRESSION: 1. Normal CT of the chest. 2. The x-ray appearance of irregularity of the sternum is due to benign calcifications of the costoch ondral joint on the right. Reviewed by: Dave Salgado on 04/30/2022 3:29 PM PDT Approved by: Dave Salgado on 04/30/2022 3:29 PM PDT Station ID: [id number]
== END 2022-04-30 11:50 | disposition home or self-care (01) ==
LOC: DI 11:49
PROVIDERS: ATTEND Physician Assistant Medical
DX: M25.80 Other specified joint disorders, unspecified joint (principal); R22.2 Localized swelling, mass and lump, trunk
CPT/HCPCS: 36415; 82565

== ENCOUNTER 2022-11-05 09:21 | Outpatient (CLI) | payer MEDICARE, BC ==
--- NOTE | 2022-11-05 18:04 | CT Report ---
PROCEDURE: UPPER EXTREMITY WO - RT INDICATIONS: PAIN OF RIGHT CLAVICLE TECHNIQUE: Noncontrast 1 mm axial sections were acquired through the right clavicle and left shoulder with coron al and sagittal reformats. For radiation dose reduction, the following was used: automated exposure control, adjustment of mA and/or kV according to patient size. COMPARISON: CT of chest dated 04/30/2022 FINDINGS: Image quality: Excellent. Bones: Moderate acromioclavicular joint osteoarthritic changes are seen with joint space narrowing, subchondral sclerosis and inferior marginal osteophyte formation depressing on musculotendinous junct ion of supraspinatus. Moderate to severe osteoarthritic changes also noted involving bilateral sterno clavicular joint with significant joint space narrowing and subchondral sclerosis. Moderate to severe glenohumeral joint osteoarthritic changes are noted with joint space narrowing and prominent inferio r marginal osteophyte formation. No shoulder fracture or dislocation. No suspicious intraosseous lesi on. Soft tissues: Significant chondrocalcinosis are noted in right glenohumeral joint and bilateral ster noclavicular joints. Amorphous calcifications are also noted adjacent to greater tuberosity of brisa l head concerning for calcific tendinitis. No gross full-thickness rotator cuff tendon rupture. No de finite intra-articular loose bodies. No significant rotator cuff muscle atrophy is seen on sagittal v iews. IMPRESSION: 1. Moderate right acromioclavicular joint osteoarthritis. Moderate to severe right glenohumeral join t osteoarthritis. 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 No acute fractu re or dislocation. No suspicious bony lesions. 2. 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 Suggestion o f calcific tendinitis involving distal rotator cuff tendons near greater tuberosity of humeral head. No gross full-thickness rotator cuff tendon rupture. No significant muscle atrophy. Reviewed by: Teodoro Keating MD on 11/05/2022 6:03 PM PDT Approved by: Teodoro Keating MD on 11/05/2022 6:03 PM PDT Station ID: [id number]
== END 2022-11-05 09:22 | disposition home or self-care (01) ==
LOC: DI 09:21
PROVIDERS: ATTEND Orthopaedic Surgery
DX: M19.011 Primary osteoarthritis, right shoulder (principal); M11.211 Other chondrocalcinosis, right shoulder

== ENCOUNTER 2024-05-16 10:23 | Outpatient (CLI) | payer MEDICARE, BC | END 2024-05-16 10:24 | disposition home or self-care (01) | LOC: NS 10:23 | PROVIDERS: ATTEND Internal Medicine | DX: Z71.3 Dietary counseling and surveillance (principal); E11.8 Type 2 diabetes mellitus with unspecified complications; I12.9 Hypertensive chronic kidney disease with stage 1 through stage 4 chronic kidney disease, or unspecified chronic kidney disease; E11.22 Type 2 diabetes mellitus with diabetic chronic kidney disease; N18.32 Chronic kidney disease, stage 3b; E78.5 Hyperlipidemia, unspecified; Z68.34 Body mass index [BMI] 34.0-34.9, adult | CPT/HCPCS: 97802 ==